=== PATIENT | male | born 1965 | race African-American/Black ===

== ENCOUNTER 2017-06-17 22:39 | Emergency (ER) | payer SELFPAY ==
[2017-06-17 22:45] VITALS: BMI 36.9
[2017-06-17] MEDS ORDERED: SODIUM CHLORIDE 1,000 ML IV STA (23:00)
--- NOTE | 2017-06-17 23:01 | PDOC ---
History of Present Illness - General History Source: Patient, EMS, Old Records Exam Limitations: Intoxication - History of Present Illness Initial Comments: 06/18/17 00:04 The patient is a 51 year old male brought via EMS from [facility], with a significant past medical history of polysubstance abuse, who presents to the emergency department with a suspected opiod overdose. EMS notes that the patient was at the intake area at [facility] when the patient became unconscious. EMS states that they administered Narcan on route which mildly awoke the patient. On presentation the patient is going in and out of sleep and unable to provide a history. Allergies: None Past surgical history: None reported Social history: Alcohol, cocaine, heroin, marijuana 06/18/17 00:09 <Jose Shelton - Last Filed: 06/18/17 00:09> <Juana Covarrubias - Last Filed: 06/18/17 18:16> - General Chief Complaint: Overdose Stated Complaint: Overdose Time Seen by Provider: 06/17/17 22:56 Past History <Jose Shelton - Last Filed: 06/18/17 00:09> - Past Medical History Anemia: No Asthma: No Cancer: No Cardiac Disorders: No CVA: No COPD: No CHF: No Dementia: No Diabetes: No GI Disorders: No Disorders: No HTN: No Hypercholesterolemia: No Kidney Stones: No Liver Disease: No Seizures: No Thyroid Disease: No - Reproductive History Testicular Surgery: No - Suicide/Smoking/Psychosocial Hx Smoking History: Current every day smoker Have you smoked in the past 12 months: No Number of Cigarettes Smoked Daily: 20 Cigars Per Day: 0 Information on smoking cessation initiated: No 'Breaking Loose' booklet given: 05/18/14 Hx Alcohol Use: Yes Drug/Substance Use Hx: Yes Substance Use Type: Alcohol, Cocaine, Marijuana Hx Substance Use Treatment: Yes (2011) <Juana Covarrubias - Last Filed: 06/18/17 18:16> - Past Medical History Allergies/Adverse Reactions: Allergies Allergy/AdvReac Type Severity Reaction Status Date / Time No Known Allergies Allergy Verified 06/18/17 10:30 Home Medications: Ambulatory Orders NK [No Known Home Medication] 06/18/17 Review of Systems - Review of Systems Able to Perform ROS?: No Comments:: 06/18/17 00:02 Unable to obtain due to patient clinical presentation. <Jose Shelton - Last Filed: 06/18/17 00:09> *Physical Exam - Vital Signs Last Vital Signs Temp Pulse Resp BP Pulse Ox 67 61 H 88/48 97 06/17/17 22:43 06/17/17 23:48 06/17/17 23:48 06/17/17 22:43 - Physical Exam Comments: 06/18/17 00:03 GENERAL: Sleepy. HEAD: No signs of trauma, normocephalic, atraumatic EYES: PERRLA, EOMI, sclera anicteric, conjunctiva clear ENT: Auricles normal inspection, hearing grossly normal, nares patent, oropharynx clear without exudates. Moist mucosa NECK: Normal ROM, supple, no lymphadenopathy, JVD, or masses LUNGS: No distress, clear to auscultation bilaterally HEART: Regular rate and rhythm, normal S1 and S2, no murmurs, rubs or gallops, peripheral pulses normal and equal bilaterally. ABDOMEN: Soft, nontender, normoactive bowel sounds. No guarding, no rebound. No masses EXTREMITIES : Normal inspection, Normal range of motion, no edema. No clubbing or cyanosis. NEUROLOGICAL: Deferred due to patient overdose. SKIN: Warm, Dry, normal turgor, no rashes or lesions noted. <Jose Shelton - Last Filed: 06/18/17 00:09> - Vital Signs Last Vital Signs Temp Pulse Resp BP Pulse Ox 67 15 138/79 97 06/17/17 22:43 06/17/17 22:43 06/17/17 22:43 06/17/17 22:43 <Juana Covarrubias - Last Filed: 06/18/17 18:16> ED Treatment Course - Medications Given in the ED: ED Medications Discontinued Medications Generic Name Dose Route Start Last Admin Trade Name Freq PRN Reason Stop Dose Admin Sodium Chloride 1,000 mls @ 1,000 mls/hr 06/17/17 23:00 06/17/17 23:01 Normal Saline - IV 06/17/17 23:59 1,000 mls/hr ASDIR STA Administration <Jose Shelton - Last Filed: 06/18/17 00:09> - LABORATORY CBC & Chemistry Diagram: 06/18/17 01:41 06/18/17 01:41 <Juana Covarrubias - Last Filed: 06/18/17 18:16> *DC/Admit/Observation/Transfer - Attestations Scribe Attestion: 06/18/17 00:04 Documentation prepared by Jose Shelton, acting as certified medical asst for Juana Covarrubias MD <Jose Shelton - Last Filed: 06/18/17 00:09> <Juana Covarrubias - Last Filed: 06/18/17 18:16> Diagnosis at time of Disposition: Alcohol dependence - Discharge Dispostion Disposition: HOME Condition at time of disposition: Stable - Patient Instructions Printed Discharge Instructions: Ammonia, Getting Treatment for Drug Addiction, Lactulose Additional Instructions: TAKE LACTULOSE 30 MG DAILY. RETURN TO THE ER FOR CONFUSION, SWOLLEN ABDOMEN, OR ANY OTHER CONCERNING SYMPTOMS.
[2017-06-18 00:43] LABS: URINE APPEARANCE SLCLOUDY; URINE BILIRUBIN NEGATIVE (NEGATIVE); URINE BLOOD 3+ (NEGATIVE); URINE COLOR YELLOW; URINE GLUCOSE (UA) NEGATIVE (NEGATIVE); URINE KETONE NEGATIVE (NEGATIVE); URINE NITRITE NEGATIVE (NEGATIVE); URINE UROBILINOGEN NEGATIVE mg/dL (0.2-1.0)
[2017-06-18 00:59] LABS: URINE MARIJUANA THC POSITIVE ng/ml (CUTOFF=50)
[2017-06-18 01:04] LABS: URINE PROTEIN 2+ (NEGATIVE)
[2017-06-18 01:24] LABS: URINE HYALINE CAST 9 /lpf; URINE MUCUS RARE; URINE RBC 85 /hpf (0-3); URINE WBC 47 /hpf (3-5)
[2017-06-18 01:47] VITALS: BP 101/75; PULSE 89
[2017-06-18 01:52] LABS: BASOPHIL 1.2 % (0-2.0); EOSINOPHIL 2.6 % (0-4.5); MCH 29.1 pg (25.7-33.7); MCHC 33.3 g/dl (32.0-35.9); MEAN CELL VOLUME 87.2 fl (80-96); NEUTROPHILS 76.7 % (42.8-82.8); PLATELET COUNT 151 K/MM3 (134-434); RDW 14.5 % (11.9-15.9); WHITE BLOOD COUNT 10.4 K/mm3 (4.0-10.0)
[2017-06-18 02:12] LABS: INR 1.14 (0.82-1.09); PROTHROMBIN TIME (PATIENT) 12.9 SEC (9.98-11.88)
[2017-06-18 02:17] LABS: ALCOHOL < 5.0 mg/dl (0-5)
[2017-06-18 02:21] LABS: ALBUMIN 3.9 g/dl (3.4-5.0); ALK PHOS 77 U/L (45-117); ANION GAP 8 (8-16); BILIRUBIN,TOTAL 0.4 mg/dL (0.2-1.0); CALCIUM 8.9 mg/dL (8.5-10.1); CO2 27 mmol/L (21-32); CREATININE 1.3 mg/dL (0.7-1.3); GLUCOSE,RANDOM 104 mg/dL (74-106); SGOT/AST 24 U/L (15-37); SGPT/ALT 28 U/L (12-78); TOT PROT 6.5 g/dl (6.4-8.2)
[2017-06-18 02:24] LABS: SALICYLATE < 4.0 mg/dl (0.0-30.0)
--- NOTE | 2017-06-18 05:03 | PDOC ---
*Physical Exam - Vital Signs Last Vital Signs Temp Pulse Resp BP Pulse Ox 89 18 101/75 100 06/18/17 01:46 06/18/17 01:46 06/18/17 01:46 06/18/17 01:46 ED Treatment Course - LABORATORY CBC & Chemistry Diagram: 06/18/17 01:41 06/18/17 01:41 - ADDITIONAL ORDERS Additional order review: Laboratory Results 06/18/17 06/18/17 06/18/17 02:40 01:41 01:41 PT with INR INR Sodium 140 Potassium 4.4 Chloride 105 Carbon Dioxide 27 Anion Gap 8 BUN 16 Creatinine 1.3 Creat Clearance w eGFR 58.67 Random Glucose 104 D Calcium 8.9 Total Bilirubin 0.4 D AST 24 ALT 28 D Alkaline Phosphatase 77 Ammonia 41.88 H Total Protein 6.5 Albumin 3.9 Urine Color Urine Appearance Urine pH Ur Specific [place] Urine Protein Urine Glucose (UA) Urine Ketones Urine Blood Urine Nitrite Urine Bilirubin Urine Urobilinogen Urine WBC (Auto) Urine RBC (Auto) Ur Epithelial Cells Hyaline Casts Urine Mucus Salicylates < 4.0 Opiates Screen Methadone Screen Acetaminophen < 2.000 L Barbiturate Screen Phencyclidine Screen Ur Amphetamines Screen MDMA (Ecstasy) Screen Benzodiazepines Screen Cocaine Screen U Marijuana (THC) Screen Alcohol, Quantitative < 5.0 06/18/17 06/18/17 06/18/17 01:41 00:29 00:29 PT with INR 12.90 H INR 1.14 Sodium Potassium Chloride Carbon Dioxide Anion Gap BUN Creatinine Creat Clearance w eGFR Random Glucose Calcium Total Bilirubin AST ALT Alkaline Phosphatase Ammonia Total Protein Albumin Urine Color Yellow Urine Appearance Slcloudy Urine pH 6.0 Ur Specific [place] 1.015 Urine Protein 2+ H Urine Glucose (UA) Negative Urine Ketones Negative Urine Blood 3+ H Urine Nitrite Negative Urine Bilirubin Negative Urine Urobilinogen Negative Urine WBC (Auto) 47 Urine RBC (Auto) 85 Ur Epithelial Cells Rare Hyaline Casts 9 Urine Mucus Rare Salicylates Opiates Screen Negative Methadone Screen Negative Acetaminophen Barbiturate Screen Negative Phencyclidine Screen Positive Ur Amphetamines Screen Negative MDMA (Ecstasy) Screen Negative Benzodiazepines Screen Negative Cocaine Screen Positive U Marijuana (THC) Screen Positive Alcohol, Quantitative 06/18/17 01:41 RBC 4.43 MCV 87.2 MCHC 33.3 RDW 14.5 MPV 10.0 Neutrophils % 76.7 Lymphocytes % 12.3 Monocytes % 7.2 Eosinophils % 2.6 Basophils % 1.2 - Medications Given in the ED: ED Medications Discontinued Medications Generic Name Dose Route Start Last Admin Trade Name Maritza PRN Reason Stop Dose Admin Sodium Chloride 1,000 mls @ 1,000 mls/hr 06/17/17 23:00 06/17/17 23:01 Normal Saline - IV 06/17/17 23:59 1,000 mls/hr ASDIR STA Administration Medical Decision Making - Medical Decision Making 06/18/17 05:02 Pt more alert at this time. Speaking full sentences, stating he took a sleeping pill before going to detox. Noted to have some elevation in his ammonia level. Will start on lactulose. However, he is AAOx3, will not require admission at this time. *DC/Admit/Observation/Transfer Diagnosis at time of Disposition: Alcohol dependence Qualifiers: Substance use status: uncomplicated Qualified Code(s): F10.20 - Alcohol dependence, uncomplicated - Discharge Dispostion Disposition: HOME Condition at time of disposition: Stable Admit: No - Referrals - Patient Instructions - Post Discharge Activity
--- NOTE | 2017-06-18 10:24 | EKG ---
Test Reason : Blood Pressure : / mmHG Vent. Rate : 070 BPM Atrial Rate : 070 BPM P-R Int : 184 ms QRS Dur : 096 ms QT Int : 384 ms P-R-T Axes : 074 063 033 degrees QTc Int : 414 ms NORMAL SINUS RHYTHM NONSPECIFIC ST AND T WAVE ABNORMALITY ABNORMAL ECG NO PREVIOUS ECGS AVAILABLE Confirmed by STACEY DAVIS MD ([id number]) on 06/18/2017 10:23:38 AM Referred By: Confirmed By:STACEY DAVIS MD
[2017-06-18 11:29] LABS: URINE LEUK ESTERASE Negative (NEGATIVE)
== END 2017-06-18 05:52 | disposition home or self-care (01) ==
LOC: JER 22:39
PROC: 3E0337Z Introduction of Electrolytic and Water Balance Substance into Peripheral Vein, Percutaneous Approach (ICD-10-PCS; principal; 2017-06-17)
DX: F10.20 Alcohol dependence, uncomplicated (principal)
CPT/HCPCS: 36415; 70450-TC; 80053; 80307; 81003; 81015; 82140; 85025; 85610; 93005; 93010; 99282-25

== ENCOUNTER 2017-06-18 08:14 | Inpatient (IN) | payer SELFPAY ==
[2017-06-18 10:28] VITALS: BMI 33.2
--- NOTE | 2017-06-18 11:31 | HP ---
CIWA Score - CIWA Score Nausea/Vomitin-No Nausea/No Vomiting Muscle Tremors: 4-Moderate,w/Arms Extend Anxiety: 4-Mod. Anxious/Guarded Agitation: 3 Paroxysmal Sweats: 1-Minimal Palms Moist Orientation: 0-Oriented Tacttile Disturbances: 3-Moderate Itch/Numb/Burn Auditory Disturbances: 0-None Visual Disturbances: 0-None Headache: 0-None Present CIWA-Ar Total Score: 15 Admission ROS BHS - HPI Chief Complaint: WITHDRAWAL SX Allergies/Adverse Reactions: Allergies Allergy/AdvReac Type Severity Reaction Status Date / Time No Known Allergies Allergy Verified 06/18/17 10:30 History of Present Illness: 51 Y/O AA/MALE WITH A HX OF ALCOHOL, COCAINE AND MARIJUANA DEPENDENCE SEEKING DETOX TX. PT WAS AT [facility] FOR "PASSING OUT YESTERDAY". WAS EVALUATED AND CAME BACK HERE TODAY. Exam Limitations: No Limitations - Ebola screening Have you traveled outside of the country in the last 21 days: No Have you had contact with anyone from an Ebola affected area: No Have you been sick,other than usual withdrawal symptoms: No Do you have a fever: No - Review of Systems Constitutional: Night Sweats EENT: reports: Blurred Vision (WEARS GLASSES), Nose Congestion Respiratory: reports: No Symptoms reported Cardiac: reports: Lightheadedness GI: reports: No Symptoms Reported : reports: No Symptoms Reported Musculoskeletal: reports: No Symptoms Reported Integumentary: reports: Dryness Neuro: reports: No Symptoms reported Endocrine: reports: No Symptoms Reported Hematology: reports: Anemia Psychiatric: reports: Orientated x3, Anxious, Depressed Other Systems: Reviewed and Negative Patient History - Patient Medical History Hx Anemia: No Hx Asthma: No Hx Chronic Obstructive Pulmonary Disease (COPD): No Hx Cancer: No Hx Cardiac Disorders: No Hx Congestive Heart Failure: No Hx Hypertension: No Hx Hypercholesterolemia: No Hx Pacemaker: No HX Cerebrovascular Accident: No Hx Seizures: No Hx Dementia: No Hx Diabetes: No Hx Gastrointestinal Disorders: No Hx Liver Disease: No Hx Genitourinary Disorders: No Hx Sexually Transmitted Disorders: No Hx Renal Disease (ESRD): No Hx Thyroid Disease: No Hx Human Immunodeficiency Virus (HIV): No (2013 LAST) Hx Hepatitis C: No Hx Depression: Yes Hx Suicide Attempt: No Hx Bipolar Disorder: No Hx Schizophrenia: No - Patient Surgical History Past Surgical History: No Hx Neurologic Surgery: No Hx Cataract Extraction: No Hx Cardiac Surgery: No Hx Lung Surgery: No Hx Breast Surgery: No Hx Breast Biopsy: No Hx Abdominal Surgery: No Hx Appendectomy: No Hx Cholecystectomy: No Hx Genitourinary Surgery: No Hx Orthopedic Surgery: No Anesthesia Reaction: No - PPD History Previous Implant?: Yes Documented Results: Negative w/proof Implanted On Prior [facility] Admission?: Yes Date: 05/21/14 Results: 0 mm PPD to be Administered?: Yes - Reproductive History Patient is a Female of Child Bearing Age (11 -55 yrs old): No (MALE) - Smoking Cessation Smoking history: Current every day smoker Have you smoked in the past 12 months: No Aproximately how many cigarettes per day: 20 Cigars Per Day: 0 Hx Chewing Tobacco Use: No Initiated information on smoking cessation: Yes 'Breaking Loose' booklet given: 06/18/17 - Substance & Tx. History Hx Alcohol Use: Yes (BEER) Hx Substance Use: Yes (CRACK/PCP/MARIJUANA/SEROQUEL(FROM A FRIEND)) Substance Use Type: Alcohol, Cocaine, Marijuana Hx Substance Use Treatment: Yes (LAST TX AT [facility] ) - Substances Abused Crack Route: Smoking Frequency: 3-6 times per week Amount used: $300 Age of first use: 17 Date of Last Use: 06/17/17 PCP Route: Smoking Frequency: 1-3 times last 30 days Amount used: $10 Age of first use: 15 Date of Last Use: 06/16/17 Alcohol-beer Route: Oral Frequency: Daily Amount used: 1-6 pk. Age of first use: 16 Date of Last Use: 06/17/17 Marijuana Route: Smoking Frequency: Daily Amount used: $10-20 Age of first use: 14 Date of Last Use: 06/17/17 Seroquel Route: Oral Frequency: 1-3 times last 30 days Amount used: ? mg. Age of first use: 51 Date of Last Use: 06/17/17 Family Disease History - Family Disease History Family Disease History: CA: Mother (CA OF LUNG), Other: Sister (ALCOHOL) Admission Physical Exam BHS - Vital Signs Vital Signs: Vital Signs - 24 hr 06/18/17 10:23 Temperature 96.8 F L Pulse Rate 64 Respiratory 20 Rate Blood Pressure 112/70 - Physical General Appearance: Yes: Moderate Distress, Irritable HEENTM: Yes: EOMI, Normocephalic, ARJUN, Pharynx Normal Respiratory: Yes: Chest Non-Tender, Lungs Clear, Normal Breath Sounds, No Respiratory Distress Neck: Yes: Within Normal Limits, No masses,lesions,Nodules, Supple, Trachea in good position Breast: Yes: Breast Exam Deferred Cardiology: Yes: Regular Rhythm, Regular Rate, S1, S2 Abdominal: Yes: Normal Bowel Sounds, Non Tender Genitourinary: Yes: Within Normal Limits Back: Yes: Within Normal Limits Musculoskeletal: Yes: full range of Motion, Gait Steady Extremities: Yes: Normal Range of Motion, Non-Tender Neurological: Yes: marking clerk II-XII NML intact, Fully Oriented, Alert, Motor Strength 5/5 Integumentary: Yes: Dry, Warm Lymphatic: Yes: Within Normal Limits - Diagnostic (1) Nicotine dependence Current Visit: Yes Status: Acute Qualifiers: Nicotine product type: cigarettes Substance use status: in withdrawal Qualified Code(s): F17.213 - Nicotine dependence, cigarettes, with withdrawal (2) Alcohol dependence with uncomplicated withdrawal Current Visit: Yes Status: Acute (3) Cocaine dependence, uncomplicated Current Visit: Yes Status: Acute (4) Cannabis dependence, uncomplicated Current Visit: Yes Status: Acute Cleared for Admission [facility] - Detox or Rehab [facility] Level of Care: Medically Managed Detox Regimen/Protocol: Librium [facility] Breath Alcohol Content Breath Alcohol Content: 0 Urine Drug Screen - Results Drug Screen Negative: No Urine Drug Screen Results: THC-Marijuana, LITA-Cocaine, PCP-Phencyclidine
[2017-06-18] MEDS ORDERED: IBUPROFEN 400 MG TABLET (FP) PO PRN (11:42)
[2017-06-18] MEDS ORDERED: guaiFENesin/D-METHORPHAN HB 10 ML UNIT-DOSE CUPS PO PRN (11:42)
[2017-06-18] MEDS ORDERED: MAGNESIUM CITRATE 300 ML BOTTLE PO PRN (11:42)
[2017-06-18] MEDS ORDERED: LOPERAMIDE HCL 2 MG CAPSULE PO PRN (11:42)
[2017-06-18] MEDS ORDERED: chlordiazePOXIDE HCL 25 MG CAPSULE PO PRN (11:42)
[2017-06-18] MEDS ORDERED: NICOTINE POLACRILEX 4 MG GUM BUC PRN (11:42)
[2017-06-18] MEDS ORDERED: MENTHOL/PHENOL 1 EACH UD MM PRN (11:42)
[2017-06-18] MEDS ORDERED: ACETAMINOPHEN 325 MG TABLET (FP) PO PRN (11:42)
[2017-06-18] MEDS ORDERED: MAG HYDROX/AL HYDROX/SIMETH 30 ML UNIT-DOSE CUP PO PRN (11:42)
[2017-06-18] MEDS ORDERED: P-EPHED 60MG/TRIPROLIDI 2.5MG TABLET PO PRN (11:42)
[2017-06-18] MEDS ORDERED: MAGNESIUM HYDROX 2400MG/30ML ORAL SUSPENSION 30 ML CUP PO PRN (11:42)
[2017-06-18] MEDS ORDERED: chlordiazePOXIDE HCL 25 MG CAPSULE PO ONE (12:50)
[2017-06-18] MEDS: NICOTINE 21 MG/24 HOURS TOPICAL PATCH TD SCH (14:30)
[2017-06-18 15:50] LABS: HIV 1 & 2 AB NEGATIVE; HIV 1 AGp24 NEGATIVE
[2017-06-18] MEDS: chlordiazePOXIDE HCL 25 MG CAPSULE PO SCH ×2 (16:46→22:18)
[2017-06-18 21:34] LABS: PH,URINE 5.5 (5.0-8.0); URINE APPEARANCE SL CLOUDY; URINE BILIRUBIN NEGATIVE (NEGATIVE); URINE BLOOD 2+ (NEGATIVE); URINE COLOR LT. YELLOW; URINE GLUCOSE (UA) NEGATIVE (NEGATIVE); URINE KETONE TRACE (NEGATIVE); URINE NITRITE NEGATIVE (NEGATIVE); URINE PROTEIN NEGATIVE (NEGATIVE); URINE UROBILINOGEN 0.2 mg/dL (0.2-1.0)
[2017-06-18] MEDS ORDERED: THIAMINE HCL 100 MG TABLET (FP) PO SCH (22:00)
[2017-06-19 02:32] LABS: URINE MUCUS RARE; URINE RBC 26 /hpf (0-3); URINE WBC 243 /hpf (3-5); YEAST FEW
[2017-06-19] MEDS: chlordiazePOXIDE HCL 25 MG CAPSULE PO SCH ×2 (05:04→10:16)
[2017-06-19] MEDS ORDERED: PRENATAL VITAMINS W/ FOLIC ACID TABLET (FP) PO SCH (10:00)
[2017-06-19] MEDS: NICOTINE 21 MG/24 HOURS TOPICAL PATCH TD SCH (10:16)
--- NOTE | 2017-06-19 10:23 | PN ---
[facility] CIWA - CIWA Score Nausea/Vomitin-No Nausea/No Vomiting Muscle Tremors: 4-Moderate,w/Arms Extend Anxiety: 4-Mod. Anxious/Guarded Agitation: 4-Moderately Restless Paroxysmal Sweats: 1-Minimal Palms Moist Orientation: 0-Oriented Tacttile Disturbances: 0-None Auditory Disturbances: 0-None Visual Disturbances: 0-None Headache: 0-None Present CIWA-Ar Total Score: 13 S Progress Note (SOAP) Subjective: ANXIETY,IRRITABILITY,SWEATS. Objective: 06/19/17 10:21 Vital Signs Temperature 96.8 F L 06/19/17 09:03 Pulse Rate 61 06/19/17 09:03 Respiratory Rate 18 06/19/17 09:03 Blood Pressure 118/87 06/19/17 09:03 O2 Sat by Pulse Oximetry (%) Laboratory Last Values Urine Color Lt. yellow 06/18/17 19:00 Urine Appearance Sl cloudy 06/18/17 19:00 Urine pH 5.5 (5.0-8.0) 06/18/17 19:00 Ur Specific [place] 1.025 (1.001-1.035) 06/18/17 19:00 Urine Protein Negative (NEGATIVE) 06/18/17 19:00 Urine Glucose (UA) Negative (NEGATIVE) 06/18/17 19:00 Urine Ketones Trace (NEGATIVE) H 06/18/17 19:00 Urine Blood 2+ (NEGATIVE) H 06/18/17 19:00 Urine Nitrite Negative (NEGATIVE) 06/18/17 19:00 Urine Bilirubin Negative (NEGATIVE) 06/18/17 19:00 Urine Urobilinogen 0.2 mg/dL (0.2-1.0) 06/18/17 19:00 Urine WBC (Auto) 243 /hpf (3-5) 06/18/17 19:00 Urine RBC (Auto) 26 /hpf (0-3) 06/18/17 19:00 Ur Epithelial Cells Rare /HPF (FEW) 06/18/17 19:00 Urine Mucus Rare 06/18/17 19:00 Urine Yeast Few 06/18/17 19:00 HIV 1&2 Antibody Screen Negative 06/18/17 11:27 HIV P24 Antigen Negative 06/18/17 11:27 UA NOTED LEUKOCYTOSIS MICROSCOPIC HEMATURIA ASYMPTOMATIC Assessment: 06/19/17 10:25 WITHDRAWAL SX ABNORMAL UA Plan: CONTINUE DETOX REPEAT UA; UC TODAY.
[2017-06-19 10:36] LABS: URINE LEUK ESTERASE 1+ (NEGATIVE)
[2017-06-19] MEDS ORDERED: LACTULOSE 20 GM/30 ML UDC (FOR ORAL USE ONLY) PO SCH (11:00)
--- NOTE | 2017-06-19 11:49 | CONSULT ---
[facility] Psychiatric Consult - Data Date of interview: 06/19/17 Admission source: [facility] Identifying data: Readmission to [facility] for this 51 y/o AA male seeking detox treatment on for alcohol,cocaine,marihuana and phencyclidine dependemce.Patient is ,a father of three,domiciled and employed. Substance Abuse History: Confirmed by patient in this interview.See [facility] report for details. Smoking history: Current every day smoker. Have you smoked in the past 12 months: No. Aproximately how many cigarettes per day: 20. Cigars Per Day: 0. Hx Chewing Tobacco Use: No. Initiated information on smoking cessation: Yes. 'Breaking Loose' booklet given: 06/18/17. - Substance & Tx. History. Hx Alcohol Use: Yes (BEER). Hx Substance Use: Yes (CRACK/PCP/ MARIJUANA/SEROQUEL(FROM A FRIEND)). Substance Use Type: Alcohol, Cocaine, Marijuana. Hx Substance Use Treatment: Yes (LAST TX AT [facility] ). - Substances Abused. Crack. Route: Smoking. Frequency: 3-6 times per week. Amount used : $300. Age of first use: 17. Date of Last Use: 06/17/17. PCP. Route: Smoking. Frequency: 1-3 times last 30 days. Amount used: $10. Age of first use: 15. Date of Last Use: 06/16/17. Alcohol-beer. Route: Oral. Frequency : Daily. Amount used: 1-6 pk. Age of first use: 16. Date of Last Use: . Marijuana. Route: Smoking. Frequency: Daily. Amount used: $10-20. Age of first use: 14. Date of Last Use: 06/17/17. Seroquel. Route: Oral. Frequency: 1-3 times last 30 days. Amount used: ? mg. Age of first use: 51. Date of Last Use: 06/17/17 Medical History: Patient endorses good general health.Briefly treated at [facility] on 06/18/17 (found unconscious in [facility] waiting area : suspicion of heroin overdose) before admission to [facility]. Psychiatric History: Patient denies. Physical/Sexual Abuse/Trauma History: Patient denies. Additional Comment: Urine Drug Screen Results: THC-Marijuana, LITA-Cocaine, PCP- Phencyclidine.Noted. Mental Status Exam - Mental Status Exam Alert and Oriented to: Time, Place, Person Cognitive Function: Good Patient Appearance: Well Groomed Mood: Nervous, Withdrawn Affect: Appropriate, Normal Range Patient Behavior: Fatigued, Cooperative Speech Pattern: Clear Voice Loudness: Normal Thought Process: Goal Oriented Thought Disorder: Not Present Hallucinations: Denies Suicidal Ideation: Denies Homicidal Ideation: Denies Insight/Judgement: Poor Sleep: Well Appetite: Good Muscle strength/Tone: Normal (no complaint offered) Gait/Station: Normal Psychiatric Findings - Problem List ([place] 1, 2,3) (1) Alcohol dependence with uncomplicated withdrawal Current Visit: Yes Status: Acute (2) Cannabis dependence, uncomplicated Current Visit: Yes Status: Acute (3) Cocaine dependence, uncomplicated Current Visit: Yes Status: Acute (4) Nicotine dependence Current Visit: Yes Status: Acute Qualifiers: Nicotine product type: cigarettes Substance use status: in withdrawal Qualified Code(s): F17.213 - Nicotine dependence, cigarettes, with withdrawal - Initial Treatment Plan Initial Treatment Plan: Psychoeducation.Detoxification in progress.Observation.
[2017-06-19] MEDS ORDERED: chlordiazePOXIDE HCL 25 MG CAPSULE PO SCH (17:00)
[2017-06-19 17:17] VITALS: BP 120/79; PULSE 80; TEMP 97.5
--- NOTE | 2017-06-19 21:05 | DS ---
[facility] Detox Discharge Summary Admission Date: 06/18/17 Discharge Date: 06/19/17 - History Present History: Alcohol Dependence, Cannabis Dependence, Cocaine Dependence Additional Comments: patient wants to leave the facility that the is picking him up, waiting for him down stair patient wants to leave, refuses communication with the provider, refuses to discuss aftercare patient walks in to the bathroom end of conversation. Pertinent Past History: nicotine dependence - Physical Exam Results Vital Signs: Vital Signs Temperature 97.5 F L 06/19/17 17:17 Pulse Rate 80 06/19/17 17:17 Respiratory Rate 18 06/19/17 17:17 Blood Pressure 120/79 06/19/17 17:17 O2 Sat by Pulse Oximetry (%) Pertinent Admission Physical Exam Findings: withdrawal sx Laboratory Last Values Urine Color Lt. yellow 06/18/17 19:00 Urine Appearance Sl cloudy 06/18/17 19:00 Urine pH 5.5 (5.0-8.0) 06/18/17 19:00 Ur Specific [place] 1.025 (1.001-1.035) 06/18/17 19:00 Urine Protein Negative (NEGATIVE) 06/18/17 19:00 Urine Glucose (UA) Negative (NEGATIVE) 06/18/17 19:00 Urine Ketones Trace (NEGATIVE) H 06/18/17 19:00 Urine Blood 2+ (NEGATIVE) H 06/18/17 19:00 Urine Nitrite Negative (NEGATIVE) 06/18/17 19:00 Urine Bilirubin Negative (NEGATIVE) 06/18/17 19:00 Urine Urobilinogen 0.2 mg/dL (0.2-1.0) 06/18/17 19:00 Ur Leukocyte Esterase 1+ (NEGATIVE) H 06/18/17 19:00 Urine WBC (Auto) 243 /hpf (3-5) 06/18/17 19:00 Urine RBC (Auto) 26 /hpf (0-3) 06/18/17 19:00 Ur Epithelial Cells Rare /HPF (FEW) 06/18/17 19:00 Urine Mucus Rare 06/18/17 19:00 Urine Yeast Few 06/18/17 19:00 RPR Titer Nonreactive (NONREACTIVE) 06/19/17 06:00 HIV 1&2 Antibody Screen Negative 06/18/17 11:27 HIV P24 Antigen Negative 06/18/17 11:27 lab noted - Treatment Hospital Course: Detox Protocol Followed, Responded well - Medication Discharge Medications: Ambulatory Orders NK [No Known Home Medication] 06/18/17 - Diagnosis (1) Alcohol dependence with uncomplicated withdrawal Status: Acute (2) Cannabis dependence, uncomplicated Status: Chronic (3) Cocaine dependence, uncomplicated Status: Chronic (4) Nicotine dependence Status: Acute Qualifiers: Nicotine product type: cigarettes Substance use status: in withdrawal Qualified Code(s): F17.213 - Nicotine dependence, cigarettes, with withdrawal - AMA Did Patient Leave Against Medical Advice: Yes
[2017-06-19 22:57] LABS: URINE APPEARANCE CLEAR; URINE BILIRUBIN NEGATIVE (NEGATIVE); URINE BLOOD 1+ (NEGATIVE); URINE COLOR COLORLESS; URINE GLUCOSE (UA) NEGATIVE (NEGATIVE); URINE KETONE NEGATIVE (NEGATIVE); URINE NITRITE NEGATIVE (NEGATIVE); URINE PROTEIN NEGATIVE (NEGATIVE); URINE UROBILINOGEN NEGATIVE mg/dL (0.2-1.0)
[2017-06-19 23:20] LABS: URINE BACTERIA RARE /hpf (NONE SEEN); URINE RBC 2 /hpf (0-3); URINE WBC <1 /hpf (3-5)
[2017-06-20 13:40] LABS: URINE LEUK ESTERASE TRACE (NEGATIVE)
[2017-06-20] MEDS ORDERED: chlordiazePOXIDE 5 MG CAPSULE PO SCH (17:00)
[2017-06-21] MEDS ORDERED: chlordiazePOXIDE HCL 10 MG CAPSULE PO SCH (17:00)
== END 2017-06-19 19:55 | disposition left against medical advice (07) | DRG 770 ==
LOC: YASAS 08:14 → Y3N 12:34
PROVIDERS: ADMIT Internal Medicine; ATTEND Internal Medicine
PROC: HZ2ZZZZ Detoxification Services for Substance Abuse Treatment (ICD-10-PCS; principal; 2017-06-17)
DX: F10.230 Alcohol dependence with withdrawal, uncomplicated (principal); F14.20 Cocaine dependence, uncomplicated; F12.20 Cannabis dependence, uncomplicated; F17.213 Nicotine dependence, cigarettes, with withdrawal; D72.89 Other specified disorders of white blood cells; R31.29 Other microscopic hematuria; R82.90 Unspecified abnormal findings in urine
CPT/HCPCS: 36415; 81003; 81015; 86593; 87086; 87389